=== PATIENT | male | born 2000 | race Caucasian/White ===

== ENCOUNTER 2023-01-08 17:12 | Emergency (ER) | payer BC ==
[~2023-01-08] VITALS: Ht 170.2 cm; Wt 76.4 kg
[2023-01-08 17:13] VITALS: BP 107/76
--- NOTE | 2023-01-08 17:23 | NUR ---
Pt in FT4, Pt believes he has poison oak. Pt states he was at work working around it Mon. On Wed pt started itching. Pt educated to POC. Pt in agreement. Pending providers eval and treatment.
[2023-01-08] MEDS ORDERED: dexamethasone sod phosphate 10mg/ml inj PO STA (17:43)
[2023-01-08] MEDS ORDERED: PRED10TA23 PO (17:46)
== END 2023-01-08 18:06 | disposition home or self-care (01) ==
LOC: ER 17:13
DX: L23.7 Allergic contact dermatitis due to plants, except food (principal); Z88.1 Allergy status to other antibiotic agents; Z88.8 Allergy status to other drugs, medicaments and biological substances
CPT/HCPCS: 99284; J1100